=== PATIENT | female | born 1960 | race African-American/Black ===

== ENCOUNTER 2018-12-09 05:06 | Observation (INO) | payer OTHER ==
--- NOTE | 2018-12-09 05:49 | PDOC ---
Attending Attestation - Resident Resident Name: Hemant Bales - ED Attending Attestation I have performed the following: I have examined & evaluated the patient, The case was reviewed & discussed with the resident, I agree w/resident's findings & plan - HPI HPI: 12/09/18 05:44 Pt comes after a fall in her kitchen. Not witnessed by her daughter who is also her power of attourney. Daughter turned to look in the fridge when pt fell. Pt is thin and uses a walker. No other complaints. Pt has vascular dementia. - Physicial Exam PE: 12/09/18 07:23 Agree with resident exam TMs bilat cerumen impaction Afebrile PERELA Throat normal Lungs and heart clear. Head: right forehead bump/small abrasion No neuro deficits; moving all extremities. - Medical Decision Making 12/09/18 07:24 Pt will have head CT scan and labs and UA; if all normal she may be discharged home Pt will have TMs cleared out with peroxide flushes.
--- NOTE | 2018-12-09 06:46 | PDOC ---
History of Present Illness - General Chief Complaint: Injury Stated Complaint: FALL Time Seen by Provider: 12/09/18 05:15 - History of Present Illness Initial Comments: 12/09/18 06:46 58f with pmh of htn, hld, demyelinating disease and dementia presents to the ED after fall on her head at around 2am. Fall was witnessed by her "Power of Cloth Layer". Did not lose consciousness. Complained of dizziness since 9am today. Poorly verbiose. On aspirin, no other anticoagulation. Only pain is over her left forehead. Past History - Past Medical History Allergies/Adverse Reactions: Allergies Allergy/AdvReac Type Severity Reaction Status Date / Time Penicillins Allergy Verified 03/15/16 17:28 Home Medications: Ambulatory Orders Amlodipine Besylate [Norvasc -] 10 mg PO DAILY #30 tablet 12/02/13 Aspirin Coated [Ecotrin -] 81 mg PO DAILY #30 tablet.ec 12/02/13 Atorvastatin Ca [Lipitor] 20 mg PO HS #30 tablet 12/02/13 Gabapentin 400 mg PO DAILY #30 tablet 12/02/13 Hydrochlorothiazide [Hctz -] 12.5 mg PO DAILY #30 cap 12/02/13 Nicotine Patch [Nicoderm Patch -] 21 mg TD DAILY #30 patch 12/02/13 CVA: ("unsure if she had a stroke") HTN: Yes Hypercholesterolemia: Yes Psychiatric Problems: Yes - Immunization History Immunization Up to Date: No - Suicide/Smoking/Psychosocial Hx Smoking History: Current every day smoker Have you smoked in the past 12 months: Yes Number of Cigarettes Smoked Daily: 10 Information on smoking cessation initiated: No 'Breaking Loose' booklet given: 12/01/13 Hx Alcohol Use: No Drug/Substance Use Hx: No Substance Use Type: None Review of Systems - Review of Systems Able to Perform ROS?: No (Dementia) *Physical Exam - Vital Signs Last Vital Signs Temp Pulse Resp BP Pulse Ox 97.5 F L 62 16 131/82 99 12/09/18 05:12/09/18 05:15 12/09/18 05:15 12/09/18 05:12/09/18 05:15 - Physical Exam General Appearance: Yes: Nourished, Appropriately Dressed. No: Apparent Distress HEENT: positive: EOMI, MARIA, Normal ENT Inspection Respiratory/Chest: positive: Lungs Clear, Normal Breath Sounds. negative: Chest Tender, Respiratory Distress Cardiovascular: positive: Regular Rhythm, Regular Rate, S1, S2 Gastrointestinal/Abdominal: positive: Normal Bowel Sounds, Flat, Soft. negative : Tender Musculoskeletal: positive: Normal Inspection Extremity: positive: Normal Capillary Refill, Normal Inspection Integumentary: positive: Normal Color, Dry, Warm Neurologic: positive: Other (dementia) ED Treatment Course - RADIOLOGY Radiology Studies Ordered: Category Date Time Status HEAD CT WITHOUT CONTRAST [CT] Stat CT Scan 12/09/18 05:31 Ordered CXRPORT [CHEST X-RAY PORTABLE*] [RAD] Stat Radiology 12/09/18 05:31 Ordered Medical Decision Making - Medical Decision Making 12/09/18 07:14 58f with pmh of htn, hld, demyelinating disease and dementia presents to the ED after fall on her head at around 2am. Will obtain head CT to r/o fracture/bleed. Need to make sure patient's original dizziness is not cardiogenic or infectious. Basic labs and UA pending as well as cxr. Patient signed out to Dr. Fields. *DC/Admit/Observation/Transfer Diagnosis at time of Disposition: Closed head injury - Referrals - Patient Instructions - Post Discharge Activity
[2018-12-09 07:05] LABS: BASO % 0.9 % (0-2.0); HEMATOCRIT 34.2 % (32.4-45.2); HEMOGLOBIN 11.5 GM/dL (10.7-15.3); LYMPH % 34.3 % (8-40); MCH 29.1 pg (25.7-33.7); MCHC 33.6 g/dl (32.0-36.0); MEAN CELL VOLUME 86.7 fl (80-96); MEAN PLT VOLUME 8.4 fl (7.5-11.1); MONO % 8.2 % (3.8-10.2); NEUT % 54.6 % (42.8-82.8); PLATELET COUNT 303 K/MM3 (134-434); RBC 3.94 M/mm3 (3.60-5.2); RDW 14.7 % (11.6-15.6); WHITE BLOOD COUNT 6.1 K/mm3 (4.0-10.0)
--- NOTE | 2018-12-09 07:25 | PDOC ---
*Physical Exam - Vital Signs Last Vital Signs Temp Pulse Resp BP Pulse Ox 97.5 F L 62 16 131/82 99 12/09/18 05:15 12/09/18 05:15 12/09/18 05:15 12/09/18 05:15 12/09/18 05:15 ED Treatment Course - LABORATORY CBC & Chemistry Diagram: 12/09/18 06:55 12/09/18 06:55 - ADDITIONAL ORDERS Additional order review: 12/09/18 06:55 RBC 3.94 MCV 86.7 MCHC 33.6 RDW 14.7 MPV 8.4 Neutrophils % 54.6 D Lymphocytes % 34.3 D Monocytes % 8.2 D Eosinophils % 2.0 D Basophils % 0.9 D Medical Decision Making - Medical Decision Making 12/09/18 10:21 Sign out received by Dr. Bales. 58F hx vascular dementia p/w witnessed fall at home. Pending: Labs UA CT head non-con CXR --- CXR - unchanged from prior UA - negative --- Trop - 0.07 Plan for repeat trop, admit to cardiac obs --- CT head negative for acute process --- Pt admitted to cardiac obs *DC/Admit/Observation/Transfer Diagnosis at time of Disposition: Elevated troponin Closed head injury Qualifiers: Encounter type: initial encounter Qualified Code(s): S09.90XA - Unspecified injury of head, initial encounter - Discharge Dispostion Condition at time of disposition: Stable Decision to Admit order: Yes - Referrals - Patient Instructions - Post Discharge Activity
[2018-12-09 07:41] LABS: ALBUMIN 3.6 g/dl (3.4-5.0); BILIRUBIN,TOTAL 0.4 mg/dL (0.2-1); BLOOD UREA NITROGEN 21.7 mg/dL (7-18); CREATININE 0.8 mg/dL (0.55-1.3); TOT PROT 6.6 g/dl (6.4-8.2)
[2018-12-09 08:56] LABS: PH,URINE 8.5 (5.0-8.0); URINE APPEARANCE TURBID; URINE BILIRUBIN NEGATIVE (NEGATIVE); URINE COLOR YELLOW; URINE GLUCOSE (UA) NEGATIVE (NEGATIVE); URINE KETONE NEGATIVE (NEGATIVE); URINE LEUK ESTERASE NEGATIVE (NEGATIVE); URINE NITRITE NEGATIVE (NEGATIVE); URINE PROTEIN NEGATIVE (NEGATIVE); URINE UROBILINOGEN 0.2 mg/dL (0.2-1.0)
[2018-12-09] MEDS: SODIUM CHLORIDE 1,000 ML IV SCH (11:35)
[2018-12-09] MEDS: ENOXAPARIN NA (PORCINE) 40 MG/0.4 ML DISP.SYRIN SQ SCH (11:35)
[2018-12-09] MEDS ORDERED: ENOXAPARIN NA (PORCINE) 40 MG/0.4 ML DISP.SYRIN SQ ONE (11:36)
[2018-12-09] MEDS ORDERED: traZODone HCL 50 MG TABLET (FP) PO PRN (11:50)
--- NOTE | 2018-12-09 11:51 | HP ---
CHIEF COMPLAINT: Fall PCP: [facility] HISTORY OF PRESENT ILLNESS: 58 y/o F with PMHx of Vascular Dementia, HTN, CVA x 2, CAD with [place] x2 (No stents ), OA, PTSD (on medical marijuana) presents after a Fall. Patient minimally verbal, thus the majority of the HPI was provided by her accompanying daughter. Patient was in her usual state of health yesterday. At 0230, she got up from her bed and ambulated to the restroom. She then experienced sudden onset dizziness and a subsequent fall hitting her right forehead. Her daughter then picked the patient up and alerted EMS. Denies any LOC, post ictal sx's, associated convulsions, loss of bowel/bladder control or tongue biting. Patient is typically able to ambulate atleast 1 block, this is the first fall she reports. Daughter endorses normal PO Intake. Last BM was yesterday morning. Denies any associated fevers, chills, chest pain, SOB, nausea, vomiting, diarrhea, constipation. ER course was notable for: (1) (2) (3) Recent Travel: Denies PAST MEDICAL HISTORY: As above PAST SURGICAL HISTORY: Denies Social History: Smokin cigarettes daily; Amount fluctuates but has been smoking since teen age years Alcohol: Occasional Drugs: Medical Marijuana Occupation: Retired [employer] Residence: with daughter Ambulation: With cane/walker Allergies Penicillins Allergy (Verified 03/15/16 17:28) HOME MEDICATIONS: Home Medications Medication Instructions Recorded Amlodipine Besylate [Norvasc -] 10 mg PO DAILY #30 tablet 12/02/13 Aspirin Coated [Ecotrin -] 81 mg PO DAILY #30 tablet.ec 12/02/13 Atorvastatin Ca [Lipitor] 20 mg PO HS #30 tablet 12/02/13 Nicotine Patch [Nicoderm Patch -] 21 mg TD DAILY #30 patch 12/02/13 Benztropine Mesylate 1 mg PO DAILY 12/09/18 Donepezil HCl 5 mg PO DAILY 12/09/18 Multivitamin,Ther and Minerals 1 each PO DAILY 12/09/18 [Vitamin and Minerals] Risperidone 1 mg PO BID 12/09/18 traZODone HCL [Trazodone HCl] 50 mg PO DAILY 12/09/18 REVIEW OF SYSTEMS As per HPI PHYSICAL EXAMINATION Vital Signs - 24 hr 12/09/18 05:15 Temperature 97.5 F L Pulse Rate 62 Respiratory 16 Rate Blood Pressure 131/82 O2 Sat by Pulse 99 Oximetry (%) GENERAL: Awake, alert, NAD HEAD: Right forehead contusion, No other signs of trauma EYES: PERRL, EOMI EARS, NOSE, THROAT: Moist mucous membranes. NECK: Supple, No JVD, FROM LUNGS: Clear to auscultation bilaterally. No wheezes, no crackles. HEART: Regular rate and rhythm, normal S1 and S2 without murmur ABDOMEN: Soft, nontender, not distended, + bowel sounds, no guarding, no rebound EXTREMITIES: No peripheral edema. NEUROLOGICAL: Cranial nerves II-XII intact. Minimally verbal. SKIN: Warm, dry Laboratory Results - last 24 hr 12/09/18 12/09/18 12/09/18 06:55 06:55 06:55 WBC 6.1 RBC 3.94 Hgb 11.5 Hct 34.2 MCV 86.7 MCH 29.1 MCHC 33.6 RDW 14.7 Plt Count 303 MPV 8.4 Absolute Neuts (auto) 3.4 Neutrophils % 54.6 D Lymphocytes % 34.3 D Monocytes % 8.2 D Eosinophils % 2.0 D Basophils % 0.9 D Nucleated RBC % 0 Sodium 142 Potassium 4.0 Chloride 105 Carbon Dioxide 29 Anion Gap 8 BUN 21.7 H Creatinine 0.8 Est GFR (CKD-EPI)AfAm 92.87 Est GFR (CKD-EPI)NonAf 80.13 Random Glucose 82 Calcium 9.0 Total Bilirubin 0.4 AST 36 ALT 58 Alkaline Phosphatase 77 Troponin I 0.07 H Total Protein 6.6 Albumin 3.6 Urine Color Urine Appearance Urine pH Ur Specific Ashley Urine Protein Urine Glucose (UA) Urine Ketones Urine Blood Urine Nitrite Urine Bilirubin Urine Urobilinogen Ur Leukocyte Esterase 12/09/18 08:40 WBC RBC Hgb Hct MCV MCH MCHC RDW Plt Count MPV Absolute Neuts (auto) Neutrophils % Lymphocytes % Monocytes % Eosinophils % Basophils % Nucleated RBC % Sodium Potassium Chloride Carbon Dioxide Anion Gap BUN Creatinine Est GFR (CKD-EPI)AfAm Est GFR (CKD-EPI)NonAf Random Glucose Calcium Total Bilirubin AST ALT Alkaline Phosphatase Troponin I Total Protein Albumin Urine Color Yellow Urine Appearance Turbid Urine pH 8.5 H D Ur Specific Ashley 1.012 Urine Protein Negative Urine Glucose (UA) Negative Urine Ketones Negative Urine Blood Negative Urine Nitrite Negative Urine Bilirubin Negative Urine Urobilinogen 0.2 Ur Leukocyte Esterase Negative Active Medications Aspirin (Ecotrin -) 81 mg PO DAILY DINORAH Atorvastatin Calcium (Lipitor -) 20 mg PO HS DINORAH Donepezil HCl (Aricept -) 5 mg PO HS DINORAH Enoxaparin Sodium (Lovenox -) 40 mg SQ DAILY [facility] Last Admin: 12/09/18 11:35 Dose: 40 mg Sodium Chloride (Normal Saline -) 1,000 mls @ 42 mls/hr IV ASDIR [facility] Last Admin: 12/09/18 11:35 Dose: 42 mls/hr Non-Formulary Medication (Amlodipine Besylate/Benazepril [Amlodipine-Benazepril 10-20 Mg]) 1 each PO DAILY DINORAH Non-Formulary Medication (Multivitamin,Ther And Minerals [Vitamin And Minerals] ) 1 each PO DAILY DINORAH Risperidone (Risperdal -) 1 mg PO BID DINORAH Trazodone HCl (Desyrel -) 50 mg PO PRN PRN PRN Reason: INSOMNIA ASSESSMENT/PLAN: 58 y/o F with PMHx of Vascular Dementia, HTN, CVA x 2, CAD with [place] x2 (No stents ), OA, PTSD (on medical marijuana) presents after a Fall. #Fall -Concerning for syncope given dizziness, however most likely mechanical -Imaging noted does not reveal any fx or bleed -Fall/Seizure precautions -Physical therapy -Analgesia via Acetaminophen -Check Orthostatics -IV NS @ 42 #Elevated Troponin R/O ACS -Trop 0.7, ?New TWI in V1-V3 -Cardiology (Dr. Orozco) Consulted -Trend Trops, EKG -Check ECHO, TSH, Lipid panel, A1c -Tele Monitoring -Continue home dose ASA, Statin #HTN, Controlled -Continue home dose Amlodipine/Benazepril #HLD -Statin #FEN -IV NS @ 42 -Replete lytes PRN -Soft diet #PPx -DVT: Lovenox Dispo: Observe on tele Daughter is Power of deputy county attorney Visit type - Emergency Visit Emergency Visit: Yes ED Registration Date: 12/09/18 Care time: The patient presented to the Emergency Department on the above date and was hospitalized for further evaluation of their emergent condition. - New Patient This patient is new to me today: Yes Date on this admission: 12/09/18 - Critical Care Critical Care patient: No ATTENDING PHYSICIAN STATEMENT I saw and evaluated the patient. I reviewed the resident's note and discussed the case with the resident. I agree with the resident's findings and plan as documented. SUBJECTIVE: OBJECTIVE: ASSESSMENT AND PLAN:
[2018-12-09] MEDS ORDERED: PATIENT'S OWN MEDICATION (NON-FORMULARY) (Amlodipine Besylate/Benazepril [Amlodipine-Benaz PO SCH (12:00)
[2018-12-09] MEDS ORDERED: LISINOPRIL 20 MG TABLET (FP) ONE (12:58)
[2018-12-09] MEDS ORDERED: ASPIRIN 81 MG CHEWABLE TABLETS ONE (12:58)
[2018-12-09] MEDS: ASPIRIN COATED 81 MG TABLET.EC PO SCH (13:00)
[2018-12-09] MEDS: LISINOPRIL 20 MG TABLET (FP) PO SCH (13:00)
--- NOTE | 2018-12-09 15:03 | PN ---
Teaching Attending Note Name of Resident: Gayatri Whitman ATTENDING PHYSICIAN STATEMENT I saw and evaluated the patient. I reviewed the resident's note and discussed the case with the resident. I agree with the resident's findings and plan as documented. SUBJECTIVE:Fall OBJECTIVE: Vital Signs Temperature 97.7 F 12/09/18 12:02 Pulse Rate 64 12/09/18 12:02 Respiratory Rate 16 12/09/18 05:15 Blood Pressure 144/87 12/09/18 12:02 O2 Sat by Pulse Oximetry (%) 100 12/09/18 12:02 Elderly F not in distress denies any chest pain or SOB HEENT: Rt fontal contusion, mm moist, bno anemia NECK: supple, no JVd No Bruit CHEST: Non tender CTA B/L CVS: S1S2 R no m/g/r ABD: No distention, non tender Bs + EXT: No trauma, non tender BS + CBC,CMP WBC 6.1 K/mm3 (4.0-10.0) 12/09/18 06:55 RBC 3.94 M/mm3 (3.60-5.2) 12/09/18 06:55 Hgb 11.5 GM/dL (10.7-15.3) 12/09/18 06:55 Hct 34.2 % (32.4-45.2) 12/09/18 06:55 MCV 86.7 fl (80-96) 12/09/18 06:55 MCH 29.1 pg (25.7-33.7) 12/09/18 06:55 MCHC 33.6 g/dl (32.0-36.0) 12/09/18 06:55 RDW 14.7 % (11.6-15.6) 12/09/18 06:55 Plt Count 303 K/MM3 (134-434) 12/09/18 06:55 MPV 8.4 fl (7.5-11.1) 12/09/18 06:55 Absolute Neuts (auto) 3.4 K/mm3 (1.5-8.0) 12/09/18 06:55 Neutrophils % 54.6 % (42.8-82.8) D 12/09/18 06:55 Lymphocytes % 34.3 % (8-40) D 12/09/18 06:55 Monocytes % 8.2 % (3.8-10.2) D 12/09/18 06:55 Eosinophils % 2.0 % (0-4.5) D 12/09/18 06:55 Basophils % 0.9 % (0-2.0) D 12/09/18 06:55 Nucleated RBC % 0 % (0-0) 12/09/18 06:55 Sodium 142 mmol/L (136-145) 12/09/18 06:55 Potassium 4.0 mmol/L (3.5-5.1) 12/09/18 06:55 Chloride 105 mmol/L (98-107) 12/09/18 06:55 Carbon Dioxide 29 mmol/L (21-32) 12/09/18 06:55 Anion Gap 8 MMOL/L (8-16) 12/09/18 06:55 BUN 21.7 mg/dL (7-18) H 12/09/18 06:55 Creatinine 0.8 mg/dL (0.55-1.3) 12/09/18 06:55 Est GFR (CKD-EPI)AfAm 92.87 12/09/18 06:55 Est GFR (CKD-EPI)NonAf 80.13 12/09/18 06:55 Random Glucose 82 mg/dL (74-106) 12/09/18 06:55 Calcium 9.0 mg/dL (8.5-10.1) 12/09/18 06:55 Total Bilirubin 0.4 mg/dL (0.2-1) 12/09/18 06:55 AST 36 U/L (15-37) 12/09/18 06:55 ALT 58 U/L (13-61) 12/09/18 06:55 Alkaline Phosphatase 77 U/L (45-117) 12/09/18 06:55 Troponin I 0.08 ng/ml (0.00-0.05) H 12/09/18 14:21 Total Protein 6.6 g/dl (6.4-8.2) 12/09/18 06:55 Albumin 3.6 g/dl (3.4-5.0) 12/09/18 06:55 EKG: HR [address] T chnages in ant leads CXR: No infiltrates CT haed; no acute changes Active Medications Amlodipine Besylate (Norvasc -) 10 mg PO DAILY DINORAH Aspirin (Ecotrin -) 81 mg PO DAILY [facility] Last Admin: 12/09/18 13:00 Dose: 81 mg Atorvastatin Calcium (Lipitor -) 20 mg PO HS DINORAH Donepezil HCl (Aricept -) 5 mg PO HS [facility] Enoxaparin Sodium (Lovenox -) 40 mg SQ DAILY [facility] Last Admin: 12/09/18 11:35 Dose: 40 mg Sodium Chloride (Normal Saline -) 1,000 mls @ 42 mls/hr IV ASDIR [facility] Last Admin: 12/09/18 11:35 Dose: 42 mls/hr Lisinopril (Prinivil) 20 mg PO DAILY [facility] Last Admin: 12/09/18 13:00 Dose: 20 mg Multivitamins/Minerals (Theragran-M) 1 each PO DAILY [facility] Risperidone (Risperdal -) 1 mg PO BID [facility] Trazodone HCl (Desyrel -) 50 mg PO HS PRN PRN Reason: INSOMNIA ASSESSMENT AND PLAN:58 yrs old F F/U at [facility] and private neurologist H/O HTN, PTSD, Vascular Dementia, CVA X2 no residual weakness, CAD IA (as per daughter) Arthritis, chronic pain on Medical Marijuana BIB family for evaluation a fall with last night as per patient around 2.0 am she got up felt dizzy and landed on the floor hit rt side of the fore head no LOC, chest pain, palpitation or focal motor sensory symptoms, daughter helped her to walk to wash room , in morning noticed a bump on the fore head brought to Ed for evaluation, w/u shows Trop I 0.[address]-T changes Problem List - Problems (1) Closed head injury Assessment/Plan: S/P fall most likely mechanical in the setting of [facility] unlikely seizures, or CVA , CT head normal, fall precautions, PT evaluation, extensive w/ u at DC for Dementia including multiple Brain imaging, observe on tele F/U ECHO at present patient is at base line Mental status check orthostatic consider IV Hydration. Code(s): S09.90XA - UNSPECIFIED INJURY OF HEAD, INITIAL ENCOUNTER Qualifiers: Encounter type: initial encounter Qualified Code(s): S09.90XA - Unspecified injury of head, initial encounter (2) Elevated troponin Assessment/Plan: mild elevation of troponin I last cardiac evaluation at [place] in 2013 for abnormal EKG denies any chest pain SOB Or palpitation, serial EKGs and Troponin I, cont ASA 81 mg Statin Lipitor 20 mg F/U TSH, Lipid panel HbA1c, Cardiology consult Dr is called from Ed considering no chest pain and non dynamic EKG will defer AC till we get cardiology input. Code(s): R74.8 - ABNORMAL LEVELS OF OTHER SERUM ENZYMES (3) HTN (hypertension) Assessment/Plan: cont all home meds Code(s): I10 - ESSENTIAL (PRIMARY) HYPERTENSION (4) Hypercholesterolemia Assessment/Plan: cont Statin Lipitor 20 F/U Lipid Panel TSH Code(s): E78.00 - PURE HYPERCHOLESTEROLEMIA, UNSPECIFIED (5) Vascular dementia Assessment/Plan: Resume home meds Code(s): F01.50 - VASCULAR DEMENTIA WITHOUT BEHAVIORAL DISTURBANCE (6) PTSD (post-traumatic stress disorder) Assessment/Plan: Resume home meds at present patient is stable emotionally no suicidal or homicidal ideation. Code(s): F43.10 - POST-TRAUMATIC STRESS DISORDER, UNSPECIFIED
--- NOTE | 2018-12-09 18:43 | CON.CARD ---
Consult Consult Specialty:: cardiology Reason for Consultation:: fall; ? syncopal. - History of Present Illness Chief Complaint: Pt alert; denies palpitations, dizziness, chest pain, dyspnea. Pt's daughter is at bedside. History of Present Illness: Pt comes after a fall in her kitchen. Not witnessed by her daughter who is also her power of attouney. Daughter turned to look in the fridge when pt fell. Pt is thin and uses a walker. No other complaints. Pt has vascular dementia. - History Source History Provided By: Patient, Family Member, Medical Record Limitations to Obtaining History: Dementia - Past Medical History COOK SOUP: Yes: Peripheral Neuropathy (cva) Cardio/Vascular: Yes: HTN, [place], Other (cva) Reproductive: Yes: Postmenopausal ...: No Heme/Onc: No: Anemia Psych: Yes: Anxiety Musculoskeletal: Yes: Other (left-sided weakness since 2012 CVA (treated at [facility] )) - Past Surgical History Past Surgical History: Yes: None - Alcohol/Substance Use Hx Alcohol Use: No - Smoking History Smoking history: Current every day smoker Have you smoked in the past 12 months: Yes Aproximately how many cigarettes per day: 10 - Social History Usual Living Arrangement: With Significant Other Home Medications - Allergies Allergies/Adverse Reactions: Allergies Allergy/AdvReac Type Severity Reaction Status Date / Time Penicillins Allergy Verified 03/15/16 17:28 - Home Medications Home Medications: Ambulatory Orders Aspirin Coated [Ecotrin -] 81 mg PO DAILY #30 tablet.ec 12/02/13 Atorvastatin Ca [Lipitor] 20 mg PO HS #30 tablet 12/02/13 Amlodipine Besylate/Benazepril [Amlodipine-Benazepril 10-20 mg] 1 each PO DAILY 12/09/18 Donepezil HCl 5 mg PO HS 12/09/18 Multivitamin,Ther and Minerals [Vitamin and Minerals] 1 each PO DAILY 12/09/18 Risperidone 1 mg PO BID 12/09/18 traZODone HCL [Trazodone HCl] 50 mg PO PRN PRN 12/09/18 Family Medical History Family History: Denies - Risk Factors Known Risk Factors: Yes: Age, Hypertension, Physical Inactivity, Race, Smoking Vital Signs: Vital Signs Temperature 98 F 12/09/18 16:00 Pulse Rate 68 12/09/18 16:04 Respiratory Rate 19 12/09/18 16:04 Blood Pressure 147/85 12/09/18 16:04 O2 Sat by Pulse Oximetry (%) 98 12/09/18 16:04 - Other Data Labs, Other Data: CBC, BMP 12/09/18 06:55 12/09/18 06:55 Troponin, BNP 12/09/18 12/09/18 06:55 14:21 Troponin I 0.07 H 0.08 H Troponin, BNP 12/09/18 12/09/18 06:55 14:21 Troponin I 0.07 H 0.08 H Problem List - Problems (1) Elevated troponin Assessment/Plan: TNI 0.07-->0.08-->0.10. Code(s): R74.8 - ABNORMAL LEVELS OF OTHER SERUM ENZYMES (2) HTN (hypertension) Assessment/Plan: On lisinopril and amlodipine. Code(s): I10 - ESSENTIAL (PRIMARY) HYPERTENSION (3) Hypercholesterolemia Code(s): E78.00 - PURE HYPERCHOLESTEROLEMIA, UNSPECIFIED (4) PTSD (post-traumatic stress disorder) Code(s): F43.10 - POST-TRAUMATIC STRESS DISORDER, UNSPECIFIED (5) Vascular dementia Assessment/Plan: No acute pathology on CT head. Pt's daughter gives hx of her mother having "vascular dementia". Code(s): F01.50 - VASCULAR DEMENTIA WITHOUT BEHAVIORAL DISTURBANCE (6) Fall Assessment/Plan: Pt's daughter believes her mother fell because she got up on her own, did not use her cane, and slipped. She does not believe there was loss of consciousness. Follow orthostatic VS. Maintain hydration. Electrolytes. Code(s): W19.XXXA - UNSPECIFIED FALL, INITIAL ENCOUNTER
[2018-12-09 19:00] VITALS: BMI 18.8
[2018-12-09] MEDS ORDERED: PNEUMOC 13-VAL CONJ-DIP CRM/PF 0.5 ML DISP.SYRIN IM ONE (19:00)
[2018-12-09] MEDS: risperiDONE 1 MG TABLET (FP) PO SCH (21:26)
[2018-12-09] MEDS ORDERED: PNEUMOCOCCAL 23 VACCINE 0.5 ML VIAL IM ONE (21:30)
[2018-12-09] MEDS ORDERED: DONEPEZIL HCL 5 MG TABLET (FP) PO SCH (22:00)
[2018-12-09] MEDS ORDERED: ATORVASTATIN CA 20 MG TABLET (FP) PO SCH (22:00)
[2018-12-10 06:39] LABS: BASO % 0.8 % (0-2.0); HEMATOCRIT 34.3 % (32.4-45.2); HEMOGLOBIN 11.7 GM/dL (10.7-15.3); LYMPH % 45.9 % (8-40); MCH 29.4 pg (25.7-33.7); MEAN CELL VOLUME 86.5 fl (80-96); MEAN PLT VOLUME 8.5 fl (7.5-11.1); MONO % 8.4 % (3.8-10.2); NEUT % 41.9 % (42.8-82.8); PLATELET COUNT 309 K/MM3 (134-434); RBC 3.97 M/mm3 (3.60-5.2); RDW 14.6 % (11.6-15.6); WHITE BLOOD COUNT 6.2 K/mm3 (4.0-10.0)
--- NOTE | 2018-12-10 07:06 | EKG ---
Test Reason : Blood Pressure : / mmHG Vent. Rate : 062 BPM Atrial Rate : 062 BPM P-R Int : 132 ms QRS Dur : 086 ms QT Int : 426 ms P-R-T Axes : 074 078 072 degrees QTc Int : 432 ms NORMAL SINUS RHYTHM NONSPECIFIC T WAVE ABNORMALITY ABNORMAL ECG WHEN COMPARED WITH ECG OF 09-DEC-2018 06:23, NONSPECIFIC T WAVE ABNORMALITY NOW EVIDENT IN LATERAL LEADS Confirmed by LYNDA WATTS, TITO ([id number]) on 12/10/2018 7:06:01 AM Referred By: Dinesh HINOJOSA Confirmed By:TITO HOWELL MD
[2018-12-10 07:07] LABS: ALBUMIN 3.6 g/dl (3.4-5.0); BILIRUBIN,TOTAL 0.4 mg/dL (0.2-1); CALCIUM 9.3 mg/dL (8.5-10.1); CREATININE 0.8 mg/dL (0.55-1.3); MAGNESIUM 2.4 mg/dL (1.8-2.4); PHOSPHOROUS 3.8 mg/dL (2.5-4.9); POTASSIUM 3.2 mmol/L (3.5-5.1); TOT PROT 6.6 g/dl (6.4-8.2)
--- NOTE | 2018-12-10 07:08 | EKG ---
Test Reason : Blood Pressure : / mmHG Vent. Rate : 061 BPM Atrial Rate : 061 BPM P-R Int : 150 ms QRS Dur : 090 ms QT Int : 424 ms P-R-T Axes : 080 079 072 degrees QTc Int : 426 ms NORMAL SINUS RHYTHM NORMAL ECG WHEN COMPARED WITH ECG OF 01-DEC-2013 08:24, T WAVE INVERSION NO LONGER EVIDENT IN INFERIOR LEADS NONSPECIFIC T WAVE ABNORMALITY NO LONGER EVIDENT IN LATERAL LEADS Confirmed by LYNDA WATTS, TITO ([id number]) on 12/10/2018 7:07:53 AM Referred By: Confirmed By:TITO HOWELL MD
--- NOTE | 2018-12-10 07:58 | PN ---
Progress Note, Physician History of Present Illness: Pt comes after a fall in her kitchen. Not witnessed by her daughter who is also her power of attouney. Daughter turned to look in the fridge when pt fell. Pt is thin and uses a walker. No other complaints. Pt has vascular dementia. - Past Medical History AUDIT LEAD: Yes: Peripheral Neuropathy (cva) Cardio/Vascular: Yes: HTN, ME, Other (cva) Reproductive: Yes: Postmenopausal ...: No Heme/Onc: No: Anemia Psych: Yes: Anxiety Musculoskeletal: Yes: Other (left-sided weakness since 2012 CVA (treated at [facility] )) - Current Medication List Current Medications: Active Medications Amlodipine Besylate (Norvasc -) 10 mg PO DAILY [facility] Aspirin (Ecotrin -) 81 mg PO DAILY [facility] Last Admin: 12/09/18 13:00 Dose: 81 mg Atorvastatin Calcium (Lipitor -) 20 mg PO HS [facility] Last Admin: 12/09/18 21:26 Dose: 20 mg Donepezil HCl (Aricept -) 5 mg PO HS [facility] Last Admin: 12/09/18 21:26 Dose: 5 mg Enoxaparin Sodium (Lovenox -) 40 mg SQ DAILY [facility] Last Admin: 12/09/18 11:35 Dose: 40 mg Sodium Chloride (Normal Saline -) 1,000 mls @ 42 mls/hr IV ASDIR [facility] Last Admin: 12/09/18 11:35 Dose: 42 mls/hr Lisinopril (Prinivil) 20 mg PO DAILY [facility] Last Admin: 12/09/18 13:00 Dose: 20 mg Multivitamins/Minerals (Theragran-M) 1 each PO DAILY [facility] Risperidone (Risperdal -) 1 mg PO BID [facility] Last Admin: 12/09/18 21:26 Dose: 1 mg Trazodone HCl (Desyrel -) 50 mg PO HS PRN PRN Reason: INSOMNIA Last Admin: 12/09/18 21:26 Dose: 50 mg - Objective Vital Signs: Vital Signs Temperature 98.2 F 12/10/18 05:00 Pulse Rate 70 12/10/18 05:00 Respiratory Rate 18 12/10/18 07:45 Blood Pressure 118/75 12/10/18 05:00 O2 Sat by Pulse Oximetry (%) 100 12/10/18 07:45 Eyes: Yes: WNL, Conjunctiva Clear, EOM Intact HENT: Yes: WNL, Atraumatic, Normocephalic Neck: Yes: WNL, Supple, Trachea Midline Cardiovascular: Yes: WNL, Regular Rate and Rhythm Respiratory: Yes: WNL, Regular, CTA Bilaterally Gastrointestinal: Yes: WNL, Normal Bowel Sounds Genitourinary: Yes: WNL Musculoskeletal: Yes: WNL Extremities: Yes: WNL Edema: No Integumentary: Yes: WNL Neurological: Yes: WNL, Alert, Oriented ...Motor Strength: WNL Psychiatric: Yes: WNL Labs: CBC, BMP 12/10/18 05:15 12/10/18 05:15 Assessment/Plan - Problems (1) Elevated troponin Assessment/Plan: TNI 0.07-->0.08-->0.10. check echo cont telemetry Code(s): R74.8 - ABNORMAL LEVELS OF OTHER SERUM ENZYMES (2) HTN (hypertension) Assessment/Plan: On lisinopril and amlodipine. Code(s): I10 - ESSENTIAL (PRIMARY) HYPERTENSION (3) Hypercholesterolemia Code(s): E78.00 - PURE HYPERCHOLESTEROLEMIA, UNSPECIFIED (4) PTSD (post-traumatic stress disorder) Code(s): F43.10 - POST-TRAUMATIC STRESS DISORDER, UNSPECIFIED (5) Vascular dementia Assessment/Plan: No acute pathology on CT head. Pt's daughter gives hx of her mother having "vascular dementia". Code(s): F01.50 - VASCULAR DEMENTIA WITHOUT BEHAVIORAL DISTURBANCE (6) Fall Assessment/Plan: Pt's daughter believes her mother fell because she got up on her own, did not use her cane, and slipped. She does not believe there was loss of consciousness. Follow orthostatic VS. Maintain hydration. Electrolytes. Code(s): W19.XXXA - UNSPECIFIED FALL, INITIAL ENCOUNTER
--- NOTE | 2018-12-10 08:07 | PN ---
Physical Exam: SUBJECTIVE: Patient seen and examined OBJECTIVE: Vital Signs Period Temp Pulse Resp BP Sys/Fitzpatrick Pulse Ox Last 24 Hr 97.6 F-98.5 F 64-117 18-20 118-156/74-99 96-100 GENERAL: The patient is awake, alert, and fully oriented, in no acute distress. HEAD: Normal with no signs of trauma. EYES: PERRL, extraocular movements intact, sclera anicteric, conjunctiva clear. No ptosis. ENT: Ears normal, nares patent, oropharynx clear without exudates, moist mucous membranes. NECK: Trachea midline, full range of motion, supple. LUNGS: Breath sounds equal, clear to auscultation bilaterally, no wheezes, no crackles, no accessory muscle use. HEART: Regular rate and rhythm, S1, S2 without murmur, rub or gallop. ABDOMEN: Soft, nontender, nondistended, normoactive bowel sounds, no guarding, no rebound, no hepatosplenomegaly, no masses. EXTREMITIES: 2+ pulses, warm, well-perfused, no edema. NEUROLOGICAL: Cranial nerves II through XII grossly intact. Normal speech, gait not observed. PSYCH: Normal mood, normal affect. SKIN: Warm, dry, normal turgor, no rashes or lesions noted Laboratory Results - last 24 hr 12/09/18 12/09/18 12/09/18 08:40 14:21 21:49 WBC RBC Hgb Hct MCV MCH MCHC RDW Plt Count MPV Absolute Neuts (auto) Neutrophils % Lymphocytes % Monocytes % Eosinophils % Basophils % Nucleated RBC % Sodium Potassium Chloride Carbon Dioxide Anion Gap BUN Creatinine Est GFR (CKD-EPI)AfAm Est GFR (CKD-EPI)NonAf Random Glucose Calcium Phosphorus Magnesium Total Bilirubin AST ALT Alkaline Phosphatase Troponin I 0.08 H 0.10 H Total Protein Albumin Triglycerides Cholesterol Total LDL Cholesterol HDL Cholesterol TSH Urine Color Yellow Urine Appearance Turbid Urine pH 8.5 H D Ur Specific [place] 1.012 Urine Protein Negative Urine Glucose (UA) Negative Urine Ketones Negative Urine Blood Negative Urine Nitrite Negative Urine Bilirubin Negative Urine Urobilinogen 0.2 Ur Leukocyte Esterase Negative 12/10/18 12/10/18 05:15 05:15 WBC 6.2 RBC 3.97 Hgb 11.7 Hct 34.3 MCV 86.5 MCH 29.4 MCHC 34.0 RDW 14.6 Plt Count 309 MPV 8.5 Absolute Neuts (auto) 2.6 Neutrophils % 41.9 L D Lymphocytes % 45.9 H D Monocytes % 8.4 Eosinophils % 3.0 Basophils % 0.8 Nucleated RBC % 0 Sodium 144 Potassium 3.2 L Chloride 107 Carbon Dioxide 28 Anion Gap 9 BUN 15.0 Creatinine 0.8 Est GFR (CKD-EPI)AfAm 92.87 Est GFR (CKD-EPI)NonAf 80.13 Random Glucose 76 Calcium 9.3 Phosphorus 3.8 Magnesium 2.4 Total Bilirubin 0.4 AST 23 ALT 51 Alkaline Phosphatase 80 Troponin I 0.09 H Total Protein 6.6 Albumin 3.6 Triglycerides 55 Cholesterol 174 Total LDL Cholesterol 87 HDL Cholesterol 83 H TSH 0.99 Urine Color Urine Appearance Urine pH Ur Specific [place] Urine Protein Urine Glucose (UA) Urine Ketones Urine Blood Urine Nitrite Urine Bilirubin Urine Urobilinogen Ur Leukocyte Esterase Active Medications Generic Name Dose Route Start Last Admin Trade Name Freq PRN Reason Stop Dose Admin Amlodipine Besylate 10 mg 12/10/18 12:15 Norvasc - PO DAILY [facility] Aspirin 81 mg 12/09/18 12:15 12/09/18 13:00 Ecotrin - PO 81 mg DAILY [facility] Administration Atorvastatin Calcium 20 mg 12/09/18 22:00 12/09/18 21:26 Lipitor - PO 20 mg HS [facility] Administration Donepezil HCl 5 mg 12/09/18 22:00 12/09/18 21:26 Aricept - PO 5 mg HS [facility] Administration Enoxaparin Sodium 40 mg 12/09/18 11:45 12/09/18 11:35 Lovenox - SQ 40 mg DAILY [facility] Administration Sodium Chloride 1,000 mls @ 42 mls/hr 12/09/18 11:30 12/09/18 11:35 Normal Saline - IV 42 mls/hr ASDIR [facility] Administration Lisinopril 20 mg 12/09/18 12:15 12/09/18 13:00 Prinivil PO 20 mg DAILY [facility] Administration Multivitamins/Minerals 1 each 12/10/18 10:00 Theragran-M PO DAILY [facility] Risperidone 1 mg 12/09/18 22:00 12/09/18 21:26 Risperdal - PO 1 mg BID [facility] Administration Trazodone HCl 50 mg 12/09/18 11:50 12/09/18 21:26 Desyrel - PO 50 mg HS PRN Administration INSOMNIA ASSESSMENT/PLAN: ATTENDING PHYSICIAN STATEMENT I saw and evaluated the patient. I reviewed the resident's note and discussed the case with the resident. I agree with the resident's findings and plan as documented. SUBJECTIVE: OBJECTIVE: ASSESSMENT AND PLAN:
[2018-12-10] MEDS: LISINOPRIL 20 MG TABLET (FP) PO SCH (09:20)
[2018-12-10] MEDS: ASPIRIN COATED 81 MG TABLET.EC PO SCH (09:20)
[2018-12-10] MEDS: risperiDONE 1 MG TABLET (FP) PO SCH (09:20)
[2018-12-10] MEDS: ENOXAPARIN NA (PORCINE) 40 MG/0.4 ML DISP.SYRIN SQ SCH (09:20)
[2018-12-10] MEDS ORDERED: MULTIVITAMINS THER W-MINERALS COMBO TABLET (FP) PO SCH (10:00)
[2018-12-10] MEDS: SODIUM CHLORIDE 1,000 ML IV SCH (12:05)
[2018-12-10] MEDS ORDERED: amLODIPine BESYLATE 10 MG TABLET (FP) PO SCH (12:15)
--- NOTE | 2018-12-10 14:27 | PN ---
Teaching Attending Note Name of Resident: Livia Chandler ATTENDING PHYSICIAN STATEMENT I saw and evaluated the patient. I reviewed the resident's note and discussed the case with the resident. I agree with the resident's findings and plan as documented. SUBJECTIVE: No complaints. OBJECTIVE: Vital Signs Period Temp Pulse Resp BP Sys/Fitzpatrick Pulse Ox Last 24 Hr 97.6 F-98.5 F 65-117 18-20 118-156/74-99 96-100 HEART: S1S2, RRR LUNGS: Clear ABDOMEN: Soft, non-tender, non-distended, normal BS EXTREMITIES: No edema Laboratory Results - last 24 hr 12/09/18 12/09/18 12/10/18 14:21 21:49 05:15 WBC 6.2 RBC 3.97 Hgb 11.7 Hct 34.3 MCV 86.5 MCH 29.4 MCHC 34.0 RDW 14.6 Plt Count 309 MPV 8.5 Absolute Neuts (auto) 2.6 Neutrophils % 41.9 L D Lymphocytes % 45.9 H D Monocytes % 8.4 Eosinophils % 3.0 Basophils % 0.8 Nucleated RBC % 0 Sodium Potassium Chloride Carbon Dioxide Anion Gap BUN Creatinine Est GFR (CKD-EPI)AfAm Est GFR (CKD-EPI)NonAf Random Glucose Hemoglobin A1c % Calcium Phosphorus Magnesium Total Bilirubin AST ALT Alkaline Phosphatase Troponin I 0.08 H 0.10 H Total Protein Albumin Triglycerides Cholesterol Total LDL Cholesterol HDL Cholesterol TSH 12/10/18 12/10/18 05:15 05:39 WBC RBC Hgb Hct MCV MCH MCHC RDW Plt Count MPV Absolute Neuts (auto) Neutrophils % Lymphocytes % Monocytes % Eosinophils % Basophils % Nucleated RBC % Sodium 144 Potassium 3.2 L Chloride 107 Carbon Dioxide 28 Anion Gap 9 BUN 15.0 Creatinine 0.8 Est GFR (CKD-EPI)AfAm 92.87 Est GFR (CKD-EPI)NonAf 80.13 Random Glucose 76 Hemoglobin A1c % 5.5 Calcium 9.3 Phosphorus 3.8 Magnesium 2.4 Total Bilirubin 0.4 AST 23 ALT 51 Alkaline Phosphatase 80 Troponin I 0.09 H Total Protein 6.6 Albumin 3.6 Triglycerides 55 Cholesterol 174 Total LDL Cholesterol 87 HDL Cholesterol 83 H TSH 0.99 Current Medications Generic Name Dose Route Start Last Admin Trade Name Freq PRN Reason Stop Dose Admin Amlodipine Besylate 10 mg 12/10/18 12:15 12/10/18 12:05 Norvasc - PO 10 mg DAILY [facility] Administration Aspirin 81 mg 12/09/18 12:15 12/10/18 09:20 Ecotrin - PO 81 mg DAILY [facility] Administration Atorvastatin Calcium 20 mg 12/09/18 22:00 12/09/18 21:26 Lipitor - PO 20 mg HS [facility] Administration Donepezil HCl 5 mg 12/09/18 22:00 12/09/18 21:26 Aricept - PO 5 mg HS [facility] Administration Enoxaparin Sodium 40 mg 12/09/18 11:45 12/10/18 09:20 Lovenox - SQ 40 mg DAILY [facility] Administration Sodium Chloride 1,000 mls @ 42 mls/hr 12/09/18 11:30 12/10/18 12:05 Normal Saline - IV 42 mls/hr ASDIR [facility] Administration Lisinopril 20 mg 12/09/18 12:15 12/10/18 09:20 Prinivil PO 20 mg DAILY [facility] Administration Multivitamins/Minerals 1 each 12/10/18 10:00 12/10/18 09:20 Theragran-M PO 1 each DAILY [facility] Administration Risperidone 1 mg 12/09/18 22:00 12/10/18 09:20 Risperdal - PO 1 mg BID [facility] Administration Trazodone HCl 50 mg 12/09/18 11:50 12/09/18 21:26 Desyrel - PO 50 mg HS PRN Administration INSOMNIA ASSESSMENT AND PLAN: This is a 58 year old woman with a history of HTN, hyperlipidemia, PTSD, vascular dementia, CVA, CAD, TX, osteoarthritis, chronic pain who presented to the ED after a fall in which she hit the right side of her forehead. 1. s/p fall with head trauma - Head CT showed mild to moderate atrophy, moderate periventricular chronic microvascular ischemic changes 2. CAD, history of TX - Continue aspirin, Lipitor - Troponin 0.07 -> 0.08 -> 0.10 -> 0.09 - Echo shows normal LV, LVEF 65-70%, normal RV, mild MR, moderate TR, moderate to severe AR 3. HTN - Continue Lisinopril, Norvasc 4. Hyperlipidemia - Continue Lipitor 5. Vascular dementia - Continue Aricept 6. PTSD - Continue Trazodone, Risperdal 7. Osteoarthritis 8. Chronic pain syndrome 9. Disposition - Ok for discharge home
--- NOTE | 2018-12-10 15:05 | DS ---
Physical Exam: SUBJECTIVE: Patient seen and examined. She currently denies chest pain, abdominal pain, n/v. Yesterday she experienced 2 minutes of sudden onset chest tightness in the left side with no radiation. OBJECTIVE: Vital Signs Period Temp Pulse Resp BP Sys/Fitzpatrick Pulse Ox Last 24 Hr 97.6 F-98.5 F 65-117 18-20 118-156/74-99 96-100 PHYSICAL EXAM GENERAL: The patient is awake, alert, and fully oriented, in no acute distress. HEAD: Normal with no signs of trauma. EYES: PERRL, extraocular movements intact, sclera anicteric, conjunctiva clear. ENT: Ears normal, nares patent, oropharynx clear without exudates, moist mucous membranes. NECK: Trachea midline, full range of motion, supple. LUNGS: Breath sounds equal, clear to auscultation bilaterally, no wheezes, no crackles, no accessory muscle use. HEART: Regular rate and rhythm, S1, S2 without murmur, rub or gallop. ABDOMEN: Soft, nontender, nondistended, normoactive bowel sounds, no guarding, no rebound, no hepatosplenomegaly, no masses. EXTREMITIES: 2+ pulses, warm, well-perfused, no edema. NEUROLOGICAL: Cranial nerves II through XII grossly intact. Normal speech, gait not observed. PSYCH: Normal mood, normal affect. SKIN: Warm, dry, normal turgor, no rashes or lesions noted. LABS Laboratory Results - last 24 hr 12/09/18 12/10/18 12/10/18 21:49 05:15 05:15 WBC 6.2 RBC 3.97 Hgb 11.7 Hct 34.3 MCV 86.5 MCH 29.4 MCHC 34.0 RDW 14.6 Plt Count 309 MPV 8.5 Absolute Neuts (auto) 2.6 Neutrophils % 41.9 L D Lymphocytes % 45.9 H D Monocytes % 8.4 Eosinophils % 3.0 Basophils % 0.8 Nucleated RBC % 0 Sodium 144 Potassium 3.2 L Chloride 107 Carbon Dioxide 28 Anion Gap 9 BUN 15.0 Creatinine 0.8 Est GFR (CKD-EPI)AfAm 92.87 Est GFR (CKD-EPI)NonAf 80.13 Random Glucose 76 Hemoglobin A1c % Calcium 9.3 Phosphorus 3.8 Magnesium 2.4 Total Bilirubin 0.4 AST 23 ALT 51 Alkaline Phosphatase 80 Troponin I 0.10 H 0.09 H Total Protein 6.6 Albumin 3.6 Triglycerides 55 Cholesterol 174 Total LDL Cholesterol 87 HDL Cholesterol 83 H TSH 0.99 12/10/18 05:39 WBC RBC Hgb Hct MCV MCH MCHC RDW Plt Count MPV Absolute Neuts (auto) Neutrophils % Lymphocytes % Monocytes % Eosinophils % Basophils % Nucleated RBC % Sodium Potassium Chloride Carbon Dioxide Anion Gap BUN Creatinine Est GFR (CKD-EPI)AfAm Est GFR (CKD-EPI)NonAf Random Glucose Hemoglobin A1c % 5.5 Calcium Phosphorus Magnesium Total Bilirubin AST ALT Alkaline Phosphatase Troponin I Total Protein Albumin Triglycerides Cholesterol Total LDL Cholesterol HDL Cholesterol TSH HOSPITAL COURSE: ASSESSMENT/PLAN: 58 y/o F with PMHx of Vascular Dementia, HTN, CVA x 2, CAD with AR x2 (No stents ), OA, PTSD (on medical marijuana) presents after a Fall. #Fall -Concerning for syncope given dizziness, however most likely mechanical -Imaging noted does not reveal any fx or bleed -Fall/Seizure precautions -Physical therapy -Analgesia via Acetaminophen -Check Orthostatics -IV NS @ 42 #Elevated Troponin R/O ACS -Trop 0.7, ?New TWI in V1-V3 -Cardiology (Dr. Orozco) Consulted -Trend Trops, EKG -Check ECHO, TSH, Lipid panel, A1c -Tele Monitoring -Continue home dose ASA, Statin #HTN, Controlled -Continue home dose Amlodipine/Benazepril #HLD -Statin #FEN -IV NS @ 42 -Replete lytes PRN -Soft diet #PPx -DVT: Lovenox Dispo: Observe on tele Daughter is Power of trade mark attorney Date of Admission:12/09/18 Date of Discharge: 12/10/18 Discharge Summary Reason For Visit: ELEVATED TROPONIN LEVEL Current Active Problems Closed head injury (Acute) Elevated troponin (Acute) Fall (Acute) HTN (hypertension) (Acute) Hypercholesterolemia (Acute) PTSD (post-traumatic stress disorder) (Acute) Vascular dementia (Acute) Condition: Stable - Instructions Diet, Activity, Other Instructions: Hospital Visit Disposition: HOME - Home Medications Comprehensive Discharge Medication List: Ambulatory Orders Aspirin Coated [Ecotrin -] 81 mg PO DAILY #30 tablet.ec 12/02/13 Atorvastatin Ca [Lipitor] 20 mg PO HS #30 tablet 12/02/13 Amlodipine Besylate/Benazepril [Amlodipine-Benazepril 10-20 mg] 1 each PO DAILY 12/09/18 Donepezil HCl 5 mg PO HS 12/09/18 Multivitamin,Ther and Minerals [Vitamin and Minerals] 1 each PO DAILY 12/09/18 Risperidone 1 mg PO BID 12/09/18 traZODone HCL [Trazodone HCl] 50 mg PO PRN PRN 12/09/18 ATTENDING PHYSICIAN STATEMENT I saw and evaluated the patient. I reviewed the resident's note and discussed the case with the resident. I agree with the resident's findings and plan as documented. SUBJECTIVE: OBJECTIVE: ASSESSMENT AND PLAN:
[2018-12-10] MEDS ORDERED: POTASSIUM CHLORIDE TABS 20 MEQ TABLET.ER (FP) PO ONE (15:25)
--- NOTE | 2018-12-10 15:56 | ECHO ---
Name: RADHA VALENCIA Exam:Adult Echocardiogram Study Date: 12/10/2018 01:15 PM Age: 58 yrs Reason For Study: ef Height: 63 in Weight: 106 lb BSA: 1.5 m2 MMode/2D Measurements & Calculations IVSd: 0.69 cm Ao root diam: 3.0 cm LVIDd: 4.3 cm LA dimension: 3.5 cm LVIDs: 2.4 cm ACS: 2.0 cm LVPWd: 0.87 cm IVSs: 1.0 cm LVPWs: 1.1 cm EDV(Teich): 85.4 ml ESV(Teich): 20.7 ml Doppler Measurements & Calculations MV E max popeye: 68.6 cm/sec Ao V2 max: 159.0 cm/sec MV A max popeye: 67.4 cm/sec Ao max P.1 mmHg MV E/A: 1.0 Ao V2 mean: 102.0 cm/sec Ao mean P.9 mmHg Ao V2 VTI: 32.7 cm AI P1/2t: 777.6 msec AI max popeye: 490.6 cm/sec MR max popeye: 387.2 cm/sec AI max P.4 mmHg MR max P.2 mmHg AI dec slope: 184.8 cm/sec2 TR max popeye: 235.3 cm/sec Med Peak E' Popeye: 7.6 cm/sec TR max P.2 mmHg Med E/e': 9.1 Lat Peak E' Popeye: 7.5 cm/sec Lat E/e': 9.2 Procedure A complete two-dimensional transthoracic echocardiogram was performed (2D, M-mode, Doppler and color flow Doppler). Left Ventricle The left ventricle is normal in size. Left ventricular systolic function is normal. Ejection Fraction = 65- 70%. No regional wall motion abnormalities noted. Right Ventricle The right ventricle is normal size. The right ventricular systolic function is normal. Atria The left atrial size is normal. Right atrial size is normal. Mitral Valve There is mild mitral valve thickening. There is mild mitral regurgitation. Tricuspid Valve The tricuspid valve is normal in structure and function. There is moderate tricuspid regurgitation. P ulmonary artery systolic pressure is at least 28 mmHg if RA pressure is assumed 3 mmHg. Aortic Valve There is mild to moderate aortic sclerosis.;. Moderate to severe aortic regurgitation. Pulmonic Valve The pulmonic valve is not well visualized. Great Vessels The aortic root is normal size. Pericardium/Pleura There is no pericardial effusion. Interpretation Summary The left ventricle is normal in size. Left ventricular systolic function is normal. No regional wall motion abnormalities noted. Ejection Fraction = 65-70%. The right ventricular systolic function is normal. The left atrial size is normal. Right atrial size is normal. There is mild mitral valve thickening. There is mild mitral regurgitation. There is moderate tricuspid regurgitation. Pulmonary artery systolic pressure is at least 28 mmHg if RA pressure is assumed 3 mmHg There is mild to moderate aortic sclerosis. Moderate to severe aortic regurgitation. There is no pericardial effusion. Jeffrey De La Torre MD 12/10/2018 03:56 PM
[2018-12-10 17:17] VITALS: BP 125/79
--- NOTE | 2018-12-10 18:23 | EKG ---
Test Reason : Blood Pressure : / mmHG Vent. Rate : 063 BPM Atrial Rate : 063 BPM P-R Int : 154 ms QRS Dur : 088 ms QT Int : 428 ms P-R-T Axes : 084 075 054 degrees QTc Int : 437 ms NORMAL SINUS RHYTHM NONSPECIFIC T WAVE ABNORMALITY ABNORMAL ECG WHEN COMPARED WITH ECG OF 09-DEC-2018 06:23, T WAVE VARIATION Confirmed by GLEN FARIAS MD ([id number]) on 12/10/2018 6:23:15 PM Referred By: Confirmed By:GLEN FARIAS MD
[2018-12-10 18:56] VITALS: PULSE 71; TEMP 98.7
== END 2018-12-10 19:13 | disposition home or self-care (01) ==
LOC: JER 05:06 → JERBED 09:06 → J4W 21:06
PROVIDERS: ADMIT Internal Medicine; ATTEND Internal Medicine
PROC: 3E0337Z Introduction of Electrolytic and Water Balance Substance into Peripheral Vein, Percutaneous Approach (ICD-10-PCS; principal; 2018-12-09)
PROC: 3E013GC Introduction of Other Therapeutic Substance into Subcutaneous Tissue, Percutaneous Approach (ICD-10-PCS; 2018-12-09)
PROC: 3E0234Z Introduction of Serum, Toxoid and Vaccine into Muscle, Percutaneous Approach (ICD-10-PCS; 2018-12-09)
DX: R77.8 Other specified abnormalities of plasma proteins (principal); S09.90XA Unspecified injury of head, initial encounter; F01.50 Vascular dementia, unspecified severity, without behavioral disturbance, psychotic disturbance, mood disturbance, and anxiety; I10 Essential (primary) hypertension; E78.5 Hyperlipidemia, unspecified; F03.90 Unspecified dementia, unspecified severity, without behavioral disturbance, psychotic disturbance, mood disturbance, and anxiety; G37.9 Demyelinating disease of central nervous system, unspecified; I25.10 Atherosclerotic heart disease of native coronary artery without angina pectoris; I25.2 Old myocardial infarction; M19.90 Unspecified osteoarthritis, unspecified site; F43.10 Post-traumatic stress disorder, unspecified; F17.210 Nicotine dependence, cigarettes, uncomplicated; G89.29 Other chronic pain; Z86.73 Personal history of transient ischemic attack (TIA), and cerebral infarction without residual deficits; Z88.0 Allergy status to penicillin; Z79.82 Long term (current) use of aspirin; R26.2 Difficulty in walking, not elsewhere classified; Z99.89 Dependence on other enabling machines and devices; W18.39XA Other fall on same level, initial encounter; Z91.81 History of falling; Y93.89 Activity, other specified; Y92.002 Bathroom of unspecified non-institutional (private) residence as the place of occurrence of the external cause; Z23 Encounter for immunization
CPT/HCPCS: 36415; 70450-TC; 71045-TC-FY; 80053; 80061; 81003; 83036; 83721; 83735; 84100; 84443; 84484; 85025; 87086; 90471; 90732; 93005; 93010; 93306-TC; 96372; 97116-GP; 97161-GP; 99285-25; G0009; G0378; J2794; J7030